=== PATIENT | male | born 1965 | race Caucasian/White ===

== ENCOUNTER 2019-07-08 15:47 | Outpatient (CLI) | payer OTHER | END 2019-07-08 15:48 | disposition EMS.NT | LOC: EMS 15:47 | PROVIDERS: ATTEND Surgery | DX: S61.211A Laceration without foreign body of left index finger without damage to nail, initial encounter (principal); W26.0XXA Contact with knife, initial encounter; Y93.G1 Activity, food preparation and clean up; Y92.009 Unspecified place in unspecified non-institutional (private) residence as the place of occurrence of the external cause ==

== ENCOUNTER 2019-07-08 17:18 | Emergency (ER) | payer OTHER ==
--- NOTE | 2019-07-08 17:20 | ED Physician Documentation ---
PD HPI UPPER EXT INJURY - Stated complaint Stated Complaint: LT FING LAC - History obtained from History obtained from: Patient - History of Present Illness Location: Left, Finger (index finger) Type of injury: Laceration (He was cutting kale with a knife and excellently cut the tip of his finger with an avulsion of skin. He tried direct pressure but it continues to bleed after half an hour so is here for evaluation.) Where injury occurred: Home Timing - onset: How many hours ago (1), Today Timing - details: Abrupt onset, Still present (It is still bleeding reasonably briskly even after 1/2-hour of direct pressure.) Worsened by: Palpating Associated symptoms: No: Weakness, Numbness Review of Systems Constitutional: denies: Fever, Chills Nose: denies: Rhinorrhea / runny nose, Congestion Throat: denies: Sore throat Respiratory: denies: Cough Neurologic: denies: Near syncope PD PAST MEDICAL HISTORY - Past Medical History Past Medical History: No - Allergies Allergies/Adverse Reactions: Allergies Allergy/AdvReac Type Severity Reaction Status Date / Time No Known Drug Allergies Allergy Verified 07/08/19 17:22 PD ED PE NORMAL - Vitals Vital signs reviewed: Yes - General General: Alert and oriented X 3, No acute distress, Well developed/nourished - Derm Derm: Normal color, Warm and dry - Extremities Extremities: Other (The left index finger tip has an avulsion of skin down just to the fatty tissue layer with capillary bleeding ongoing with and pressure is removed. The distal corner of the nail is involved but the proximal portion and Marla are not. He has sensitivity of the wound in the area. The avulsion size is about 1 x 1 cm. It does not seem to expose any bone or deeper structure.) - Neuro Neuro: Alert and oriented X 3, No motor deficit, No sensory deficit Results - Vitals Vitals: Vital Signs - 24 hr 07/08/19 17:22 Temperature 36.9 C Heart Rate 65 Respiratory 14 Rate Blood Pressure 130/82 H O2 Saturation 96 Oxygen O2 Source Room air Procedures - Laceration (location) left index fingertip Length in cm: 1 Wound type: Other (It is a 1 cm avulsion of skin with capillary bleeding. The focus of treatment was to stop the bleeding to allow adequate hemostasis. Local anesthetic with 1% lidocaine. I then used a battery-operated cautery to seal the capillaries and then Dermabond over it. Bleeding was then stopped and a pressure dressing was applied by point of care technician.) Departure - Departure Disposition: 01 Home, Self Care Clinical Impression: Avulsion, finger tip Qualifiers: Encounter type: initial encounter Qualified Code(s): S61.209A - Unspecified open wound of unspecified finger without damage to nail, initial encounter Condition: Stable Record reviewed to determine appropriate education?: Yes Instructions: ED Avulsion Dermal Comments: Leave the initial dressing on for a day or 2. Otherwise keep it clean and dry. Then it is okay to remove the dressing and change it with Band-Aids. The glue should fall off after several days. At that point you can clean it with soap and water and apply ointment and allow it to heal in slowly. It should assume pretty much its normal shape, given the small size of the avulsion. Will likely take a couple of weeks to heal in. Regular activity is okay with your hands, with the fingertip bandage to help with the sensitivity of it. Tylenol or Ibuprofen as needed for pains. Recheck if signs of infection.
[2019-07-08 17:26] VITALS: BP 130/82
[2019-07-08] MEDS ORDERED: LIDOCAINE 2% 50 ML MDV SUBQ STA (17:35)
[2019-07-08] MEDS ORDERED: LIDOCAINE 1% 2 ML VIAL SUBQ STA (17:38)
[2019-07-08] MEDS ORDERED: LIDOCAINE 1% 2 ML VIAL ONE (17:41)
== END 2019-07-08 18:30 | disposition home or self-care (01) ==
LOC: ED 17:18
DX: S61.311A Laceration without foreign body of left index finger with damage to nail, initial encounter (principal); W26.0XXA Contact with knife, initial encounter; Y93.G3 Activity, cooking and baking; Y92.009 Unspecified place in unspecified non-institutional (private) residence as the place of occurrence of the external cause
CPT/HCPCS: 12001; 99282